=== PATIENT | female | born 1995 | race Caucasian/White ===

== ENCOUNTER 2016-04-14 12:28 | Emergency (ER) | payer OTHER ==
[2016-04-14 14:04] LABS: MEAN CORPUSCULAR HGB CONC 35.3 g/dl (32.0-36.5); MEAN CORPUSCULAR VOLUME 93.7 fl (80.0-96.0); RED CELL DISTRIBUTION WIDTH 11.7 % (11.5-14.5); WHITE BLOOD COUNT 6.2 K/mm3 (4.0-10.0)
--- NOTE | 2016-04-14 15:48 | REP ---
Clinical: Vaginal bleeding for viability. Technique: Transabdominal and transvaginal ultrasound examination with color Doppler evaluation of the fetus and maternal ovaries. Findings: Single live early intrauterine is appreciated. Gestational sac with yolk sac and pole identified. [place]-rump length of 6 mm corresponds to 6 weeks 3 days gestational age gestational age with estimated date of delivery 12/05/2016 . heart rate equals 124 beats per minute. No gross abnormalities are identified. Maternal ovaries demonstrate right corpus luteal cyst and normal vascularity bilaterally without torsion. Right ovary measures 3.6 x 3.4 x 2.1 cm; RI equal 0.72. Left ovary measures 2.4 x 1.9 x 1.5 cm; RI equal 0.63. Impression: Single live early intrauterine at 6 weeks 3 days gestational age. Complete anatomical assessment should be performed and 19-20 weeks. Normal maternal ovaries with right corpus luteal cyst and no evidence for torsion. Signed by Enmanuel Mckeon MD 04/14/2016 03:40 P
--- NOTE | 2016-04-14 16:30 | EDDOCDS ---
Physician Documentation [facility] Name: Annamaria Mcfadden Age: 20 yrs Sex: Female : 1995 Arrival Date: 04/14/2016 Time: 12:28 Bed I Private MD: NO PRIMARY PHYSICIAN, . Disposition: 04/14/16 16:16 Discharged to Home/Self Care. Impression: related conditions, unspecified, first trimester, Trichomonal vulvovaginitis. - Condition is Stable. - Discharge Instructions: First Trimester of , Trichomoniasis, Abdominal Pain During , [id number]. - Prescriptions for Cleocin 2 % Vaginal Cream - insert 5 gram by VAGINAL route At bedtime for 7 days; 45 gram. - Medication Reconciliation, Local Pharmacy Hours form. - Follow up: [facility]; When: 4 - 5 days; Reason: Continuance of care. Follow up: Emergency Department; When: As needed; Reason: Worsening of conditions. - Problem is new. - Symptoms have improved. Historical: - Allergies: no known allergies; - Home Meds: 1. Vitamin Oral tab 1 tab once daily - PMHx: none; - PSHx: none; - Social history: Smoking status: Patient states was never smoker of tobacco. No barriers to communication noted, The patient speaks fluent Vietnamese. - Family history: Not pertinent. - : The pt / caregiver states he / she is not on anticoagulants. Home medication list is obtained from the patient. - Exposure Risk Screening:: None identified. 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 5 in. (165.10 cm) (R); 16:23 BP 108 / 67; Pulse 74; Resp 16; Temp 98.1(T); Pulse Ox 98% on R/A; Pain 0/10; lf1 12:30 Body Mass Index 21.63 (58.97 kg, 165.10 cm) dd6 MDM: 13:24 IV Saline Lock ordered. dk1 13:24 Undress patient appropriately for examination ordered. dk1 13:24 Set up pelvic ordered. dk1 13:25 Type & Screen Ordered. EDMS 13:25 Complete Blood Count Ordered. EDMS 13:25 Hcg, Serum Quantitative Ordered. EDMS 13:25 Urinalysis Ordered. EDMS 13:25 GC & Chlamydia Amplification Ordered. EDMS 13:25 Urine Culture Ordered. EDMS 13:25 Wet Prep Ordered. EDMS 13:25 US 1st trimester Ordered. EDMS 14:05 [facility] Payment Agreement was scanned into [employer] and attached to record. jp5 14:05 Financial registration complete. jp5 14:43 Complete Blood Count Reviewed. dk1 14:43 Urinalysis Reviewed. dk1 14:43 Type & Screen Reviewed. dk1 14:46 Hcg, Serum Quantitative Reviewed. dk1 15:25 TRANSVAGINAL US Ordered. EDMS 15:25 DUPLEX SCAN LIMITED (DOPPLER) Ordered. EDMS 16:00 Wet Prep Reviewed. dk1 16:00 US 1st trimester Reviewed. dk1 Signatures: Dispatcher [employer] SHUVA Kwame Ordaz PA-C PA-C dk1 Jessica SeymourRN RN Criss SchreiberRN RN ms18 Ryann Kim jp5 The chart was reviewed and I authenticate all verbal orders and agree with the evaluation and treatment provided.Attachments: 14:05 [facility] Payment Agreement jp5 MTDD
--- NOTE | 2016-04-14 16:30 | EDDOCDS ---
Nurse's Notes [facility] Name: Annamaria Mcfadden Age: 20 yrs Sex: Female : 1995 Arrival Date: 04/14/2016 Time: 12:28 Bed I7 / 29 Private MD: NO PRIMARY PHYSICIAN, . Diagnosis: related conditions, unspecified, first trimester;Trichomonal vulvovaginitis Presentation: 04/14 12:51 Presenting complaint: Patient states: that she thinks she is 6 weeks and had a ms18 miscarriage. Pt states that she had a blood clot last night and some spotting after that. Risk factors: The patient reports no loss of conciousness prior to arrival. This patient has not had a hysterectomy. This patient has not begun menopause. Adult Sepsis Screening: The patient does not have new or worsening altered mentation. Patient's respiratory rate is less than 22. Systolic blood pressure is greater than 100. Patient has a qSOFA score of 0- Negative Sepsis Screen. Suicide/Homicide risk assessment- the patient denies having any suicidal and/or homicidal ideations and does not present with any other emotional, behavioral or mental health complaints. Status: The patient is a dependent. Transition of care: patient was not received from another setting of care. 12:51 Acuity: JOHANNA Level 3 ms18 12:51 Method Of Arrival: Walkin/Carried/Asstd ms18 Triage Assessment: 12:53 General: Appears in no apparent distress, Behavior is appropriate for age, cooperative. ms18 Pain: Denies pain. Pt Declines HIV testing. Neurological: Level of Consciousness is awake, alert, obeys commands, Oriented to person, place, time. Respiratory: Airway is patent Respiratory effort is even, unlabored. : Reports vaginal bleeding that is spotty. Derm: Skin is pink, warm & dry. 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 Vitamin Oral tab 1 tab once daily - PMHx: none; - PSHx: none; - Social history: Smoking status: Patient states was never smoker of tobacco. No barriers to communication noted, The patient speaks fluent Cymro. - Family history: Not pertinent. - : The pt / caregiver states he / she is not on anticoagulants. Home medication list is obtained from the patient. - Exposure Risk Screening:: None identified. Screenin:26 Screening information is obtained from the patient. Fall risk: No risks identified. [facility] Assistance ADL's: requires no assistance with activities of daily living. Abuse/DV Screen: The patient / caregiver reports he/she is: not in a situation that causes fear, pain or injury. Nutritional screening: No deficits noted. Advance Directives: There is no active DNR order. Assessment: 13:53 Reassessment: Patient appears in no apparent distress at this time. Patient denies pain kr3 at this time. Neurological: No deficits noted. Respiratory: Respiratory effort is even, unlabored. : Reports vaginal bleeding that is spotty had blood clot times 1 yesterday. : Denies cramping. Derm: Skin is normal. 15:04 General: transported to ultrasound via tech. [facility] 15:19 General: returned from ultrasound, tolerated well, no new problems or complaints [facility] voiced, denies needs at present, will continue to monitor. 16:11 General: resting quietly on stretcher, denies needs at this time, awaiting dispo. [facility] 16:26 General: reviewed discharge instructions, encouraged and answered questions, patient [facility] denies further needs. Vital Signs: 12:30 BP 139 / 67; Pulse 77; Resp 18 S; Temp 97.7(O); Pulse Ox 100% on R/A; Weight 58.97 kg dd6 (R); Height 5 ft. 5 in. (165.10 cm) (R); 16:23 BP 108 / 67; Pulse 74; Resp 16; Temp 98.1(T); Pulse Ox 98% on R/A; Pain 0/10; lf1 12:30 Body Mass Index 21.63 (58.97 kg, 165.10 cm) dd6 Vitals: 12:30 Log In Time: April 14, 2016 at 12:28. dd6 ED Course: 12:30 Patient visited by Marco Dominguez PCA. dd6 12:30 NO PRIMARY PHYSICIAN, . is Private Physician. dd6 12:30 Patient moved to Waiting dd6 12:31 Patient moved to Pre RCE dd6 12:53 Triage Initiated ms18 13:13 Patient moved to Triage 1 ms18 13:20 Kwame Ordaz PA-C is PHCP. dk1 13:20 Elena Fabian MD is Attending Physician. dk1 13:20 Patient visited by Kwame Ordaz PA-C. dk1 13:25 Patient moved to I7 / ct3 13:39 Urinalysis Sent. jam1 13:39 Urine Culture Sent. jam1 13:53 Patient visited by Rosaura Mcadams RN. kr3 13:53 Complete Blood Count Sent. kr3 13:53 Hcg, Serum Quantitative Sent. kr3 13:53 Type & Screen Sent. kr3 13:54 The patient / caregiver is instructed regarding the plan of care and ED course. Patient patti has correct armband on for positive identification. Placed in gown. Bed in low position. Call light in reach. Side rails up X 1. 13:54 Inserted saline lock: 20 gauge in right antecubital area and blood collected. The krBen patient tolerated the procedure well. 14:05 [facility] Payment Agreement was scanned into [employer] and attached to record. [facility] 14:22 Patient name changed from Annamaria\S\\S\Bogdan\S\ to Annamaria\S\Molly\S\Dilworth. EDMS 15:04 Patient visited by Jessica Seymour RN. [facility] 15:49 US 1st trimester Returned. EDMS 15:52 GC & Chlamydia Amplification Sent. jam1 15:52 Wet Prep Sent. jam1 16:10 Patient visited by Jessica Seymour RN. [facility] 16:15 Agenda, OB is Referral Physician. dk1 16:23 Patient visited by Danuta Bolanos RN. lf1 16:24 Patient visited by Danuta Bolanos,RAFAL. lf1 16:26 Discontinued lock intact, bleeding controlled, pressure dressing applied, No [facility] redness/swelling at site. No procedures done that require assistance. Order Results: Lab Order: Complete Blood Count; SPEC'M 04/14/16 13:51 Test: WHITE BLOOD COUNT; Value: 6.2; Range: 4.0-10.0; Units: K/mm3; Status: F Test: RED BLOOD COUNT; Value: 3.82; Range: 4.00-5.40; Abnormal: Below low normal; Units: M/mm3; Status: F Test: HEMOGLOBIN; Value: 12.6; Range: 12.0-16.0; Units: g/dl; Status: F Test: HEMATOCRIT; Value: 35.8; Range: 36.0-47.0; Abnormal: Below low normal; Units: %; Status: F Test: MEAN CORPUSCULAR VOLUME; Value: 93.7; Range: 80.0-96.0; Units: fl; Status: F Test: MEAN CORPUSCULAR HEMOGLOBIN; Value: 33.0; Range: 27.0-33.0; Units: pg; Status: F Test: MEAN CORPUSCULAR HGB CONC; Value: 35.3; Range: 32.0-36.5; Units: g/dl; Status: F Test: RED CELL DISTRIBUTION WIDTH; Value: 11.7; Range: 11.5-14.5; Units: %; Status: F Test: PLATELET COUNT, AUTOMATED; Value: 230; Range: 150-450; Units: k/mm3; Status: F Lab Order: Hcg, Serum Quantitative; SPEC'M 04/14/16 13:51 Test: HCG, SERUM QUANTITATIVE; Value: 34835; Units: MIU/ML; Status: F Test Note: ; GESTATIONAL AGE APPROXIMATE HCG RANGE (MIU/ML) 0.2-1 WEEK 5-50 1-2 WEEKS 50-500 2-3 WEEKS 100-5,000 3-4 WEEKS 500-10,000 4-5 WEEKS 1,000-50,000 5-6 WEEKS 10,000-100,000 6-8 WEEKS 15,000-200,000 2-3 MONTHS 10,000-100,000 NON FEMALES LESS THAN 3.0 Patient samples may contain human heterophilic antibodies that could react with immunoassays to give falsely elevated or depressed results. This assay has been designed to minimize interference from heterophilic antibodies. Elevated hCG levels have also been associated with trophoblastic disease and nontrophoblastic neoplasms. The possibility of having these diseases should be considered before a diagnosis of is made. This test is not intended for use as a surrogate marker for aiding in the diagnosis or monitoring the treatment of cancer patients. [employer] Interactive methodology. Lab Order: Type & Screen; SPEC'M 04/14/16 13:51 Test: BLOOD TYPE; Value: AB POS; Status: F Test: AB SCREEN (INDIRECT KIMBERLEY)GEL; Value: NEGATIVE; Status: F Lab Order: Urinalysis; SPEC'M 04/14/16 13:39 Test: APPEARANCE, URINE; Value: CLOUDY; Range: CLEAR; Abnormal: Above high normal; Status: F Test: COLOR, URINE; Value: YELLOW; Range: YELLOW; Status: F Test: PH,URINE; Value: 7.0; Range: 5.0-9.0; Units: UNITS; Status: F Test: SPECIFIC GRAVITY URINE AUTO; Value: 1.023; Range: 1.002-1.035; Status: F Test: PROTEIN, URINE AUTO; Value: NEGATIVE; Range: NEGATIVE; Units: mg/dL; Status: F Test: GLUCOSE, URINE (UA) AUTO; Value: NEGATIVE; Range: NEGATIVE; Units: mg/dL; Status: F Test: KETONE, URINE AUTO; Value: NEGATIVE; Range: NEGATIVE; Units: mg/dL; Status: F Test: UROBILINOGEN, URINE AUTO; Value: 0.2; Range: 0.0-2.0; Units: mg/dL; Status: F Test: BILIRUBIN, URINE AUTO; Value: NEGATIVE; Range: NEGATIVE; Status: F Test: NITRITE, URINE AUTO; Value: NEGATIVE; Range: NEGATIVE; Status: F Test: LEUKOCYTE ESTERASE, URINE AUTO; Value: NEGATIVE; Range: NEGATIVE; Status: F Test: BLOOD, URINE BLOOD; Value: NEGATIVE; Range: NEGATIVE; Status: F Test: WBC, URINE AUTO; Value: 2; Range: 0-3; Units: /HPF; Status: F Test: RBC, URINE AUTO; Value: 1; Range: 0-3; Units: /HPF; Status: F Test: BACTERIA, URINE AUTO; Value: 1+; Range: NEGATIVE; Abnormal: Above high normal; Status: F Test: SQUAMOUS EPITHELIAL CELL UR AU; Value: 2; Range: 0-6; Units: /HPF; Status: F Test: MUCUS, URINE; Value: SMALL; Range: NEGATIVE; Status: F Test: HYALINE CAST, URINE AUTO; Value: 0; Range: 0-1; Units: /LPF; Status: F Test: AMORPHOUS SEDIMENT; Value: MODERATE; Range: NEGATIVE; Abnormal: Above high normal; Status: F Lab Order: Wet Prep; SPEC'M 04/14/16 13:39 Test: WET PREP; Value: WET PREP RESULT; Status: F Test: WET PREP; Value: MANY WBC; Status: F Test: WET PREP; Value: MANY EPITHELIAL CELLS PRESENT; Status: F Test: WET PREP; Value: MODERATE CLUE CELLS PRESENT; Status: F Test: WET PREP; Value: MANY SHORT RODS PRESENT; Status: F Test: WET PREP; Value: Comments:; Status: F Test Note: ; Specimen did not meet the 1 hour time limit from collection to examination. Trichomonas vaginalis loses motility quickly therefore, samples need to be examined within 1 hour of collection to optimally identify this organism. Radiology Order: US 1st trimester Test: US 1st trimester REASON FOR EXAMINATION: and bleeding;Adnexal Pain r/o Torsion; Clinical: Vaginal bleeding for viability.; ; Technique: Transabdominal and transvaginal ultrasound examination with color; Doppler evaluation of the fetus and maternal ovaries.; ; Findings:; Single live early intrauterine is appreciated. Gestational sac with; yolk sac and pole identified. [place]-rump length of 6 mm corresponds to 6; weeks 3 days gestational age gestational age with estimated date of delivery; 12/05/2016 . heart rate equals 124 beats per minute. No gross; abnormalities are identified.; ; Maternal ovaries demonstrate right corpus luteal cyst and normal vascularity; bilaterally without torsion. Right ovary measures 3.6 x 3.4 x 2.1 cm; RI equal; 0.72. Left ovary measures 2.4 x 1.9 x 1.5 cm; RI equal 0.63.; ; Impression:; Single live early intrauterine at 6 weeks 3 days gestational age.; Complete anatomical assessment should be performed and 19-20 weeks. Normal; maternal ovaries with right corpus luteal cyst and no evidence for torsion.; ; ; Signed by; Enmanuel Mckeon MD 04/14/2016 03:40 P; Outcome: 16:16 Discharge ordered by Provider. dk1 16:26 Discharge Assessment: Patient awake, alert and oriented x 3. No cognitive and/or cjh functional deficits noted. Patient verbalized understanding of disposition instructions. patient administered narcotics - no. The following High Risk Discharge criteria are identified: None. Discharged to home ambulatory. Condition: good Condition: stable Condition: improved. Discharge instructions given to patient, Instructed on discharge instructions, follow up and referral plans. medication usage, Demonstrated understanding of instructions, medications, Pt was receptive of discharge instructions/ teaching. Prescriptions given X 1. Ultrasound Study completed. Property :Personal belongings accompany Pt. 16:30 Patient left the ED. [facility] Signatures: Dispatcher [employer] EDMS Jessica Steele, REHAB NURSING TECH REHAB NURSING TECH jam1 Rosaura Mcadams,RN RN kr3 Kwame Ordaz, PAMyra PAMaeganC juan1 Danuta Bolanos,RAFAL RN lf1 Marco Dominguez, REHAB NURSING TECH REHAB NURSING TECH dd6 Rachel Zavala, REHAB NURSING TECH REHAB NURSING TECH ct3 Jessica Seymour RN RN [facility] Criss HuitronRN RN ms18 Ryann Kim jp5 Corrections: (The following items were deleted from the chart) 13:41 13:30 BP 125 / 59; Pulse 78bpm; Resp 20bpm; Pulse Ox 97%; Temp 101.3F; Pain 2/10; jam1 jam1 MTDD
--- NOTE | 2016-04-16 17:30 | EDDOCDS ---
Physician Documentation [facility] Name: Annamaria Mcfadden Age: 20 yrs Sex: Female : 1995 Arrival Date: 04/14/2016 Time: 12:28 Bed I Private MD: NO PRIMARY PHYSICIAN, . Disposition: 04/14/16 16:16 Discharged to Home/Self Care. Impression: related conditions, unspecified, first trimester, Trichomonal vulvovaginitis. - Condition is Stable. - Discharge Instructions: First Trimester of , Trichomoniasis, Abdominal Pain During , [id number]. - Prescriptions for Cleocin 2 % Vaginal Cream - insert 5 gram by VAGINAL route At bedtime for 7 days; 45 gram. - Medication Reconciliation, Local Pharmacy Hours form. - Follow up: [facility]; When: 4 - 5 days; Reason: Continuance of care. Follow up: Emergency Department; When: As needed; Reason: Worsening of conditions. - Problem is new. - Symptoms have improved. Historical: - Allergies: no known allergies; - Home Meds: 1. Vitamin Oral tab 1 tab once daily - PMHx: none; - PSHx: none; - Social history: Smoking status: Patient states was never smoker of tobacco. No barriers to communication noted, The patient speaks fluent Indonesian. - Family history: Not pertinent. - : The pt / caregiver states he / she is not on anticoagulants. Home medication list is obtained from the patient. - Exposure Risk Screening:: None identified. 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 5 in. (165.10 cm) (R); 16:23 BP 108 / 67; Pulse 74; Resp 16; Temp 98.1(T); Pulse Ox 98% on R/A; Pain 0/10; lf1 12:30 Body Mass Index 21.63 (58.97 kg, 165.10 cm) dd6 MDM: 13:24 IV Saline Lock ordered. dk1 13:24 Undress patient appropriately for examination ordered. dk1 13:24 Set up pelvic ordered. dk1 13:25 Type & Screen Ordered. EDMS 13:25 Complete Blood Count Ordered. EDMS 13:25 Hcg, Serum Quantitative Ordered. EDMS 13:25 Urinalysis Ordered. EDMS 13:25 GC & Chlamydia Amplification Ordered. EDMS 13:25 Urine Culture Ordered. EDMS 13:25 Wet Prep Ordered. EDMS 13:25 US 1st trimester Ordered. EDMS 14:05 [facility] Payment Agreement was scanned into [employer] and attached to record. jp5 14:05 Financial registration complete. jp5 14:43 Complete Blood Count Reviewed. dk1 14:43 Urinalysis Reviewed. dk1 14:43 Type & Screen Reviewed. dk1 14:46 Hcg, Serum Quantitative Reviewed. dk1 15:25 TRANSVAGINAL US Ordered. EDMS 15:25 DUPLEX SCAN LIMITED (DOPPLER) Ordered. EDMS 16:00 Wet Prep Reviewed. dk1 16:00 US 1st trimester Reviewed. dk1 04/15 06:06 T-Sheet-- Draft Copy was scanned into [employer] and attached to record. sophia Signatures: Dispatcher [employer] Kwame Alvarez PA-C PA-C dk1 Jessica SeymourRN RN Criss Stinson RN RN ms18 Arel, Ryann Arredondo jp5 The chart was reviewed and I authenticate all verbal orders and agree with the evaluation and treatment provided.Attachments: 04/14 14:05 [facility] Payment Agreement jp5 04/15 06:06 T-Sheet-- Draft Copy sophia Chart Complete MTDD
--- NOTE | 2016-04-16 17:30 | EDDOCDS ---
Physician Documentation [facility] Name: Annamaria Mcfadden Age: 20 yrs Sex: Female : 1995 Arrival Date: 04/14/2016 Time: 12:28 Bed I Private MD: NO PRIMARY PHYSICIAN, . Disposition: 04/14/16 16:16 Discharged to Home/Self Care. Impression: related conditions, unspecified, first trimester, Trichomonal vulvovaginitis. - Condition is Stable. - Discharge Instructions: First Trimester of , Trichomoniasis, Abdominal Pain During , [id number]. - Prescriptions for Cleocin 2 % Vaginal Cream - insert 5 gram by VAGINAL route At bedtime for 7 days; 45 gram. - Medication Reconciliation, Local Pharmacy Hours form. - Follow up: [facility]; When: 4 - 5 days; Reason: Continuance of care. Follow up: Emergency Department; When: As needed; Reason: Worsening of conditions. - Problem is new. - Symptoms have improved. Historical: - Allergies: no known allergies; - Home Meds: 1. Vitamin Oral tab 1 tab once daily - PMHx: none; - PSHx: none; - Social history: Smoking status: Patient states was never smoker of tobacco. No barriers to communication noted, The patient speaks fluent Yakut. - Family history: Not pertinent. - : The pt / caregiver states he / she is not on anticoagulants. Home medication list is obtained from the patient. - Exposure Risk Screening:: None identified. 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 5 in. (165.10 cm) (R); 16:23 BP 108 / 67; Pulse 74; Resp 16; Temp 98.1(T); Pulse Ox 98% on R/A; Pain 0/10; lf1 12:30 Body Mass Index 21.63 (58.97 kg, 165.10 cm) dd6 MDM: 13:24 IV Saline Lock ordered. dk1 13:24 Undress patient appropriately for examination ordered. dk1 13:24 Set up pelvic ordered. dk1 13:25 Type & Screen Ordered. EDMS 13:25 Complete Blood Count Ordered. EDMS 13:25 Hcg, Serum Quantitative Ordered. EDMS 13:25 Urinalysis Ordered. EDMS 13:25 GC & Chlamydia Amplification Ordered. EDMS 13:25 Urine Culture Ordered. EDMS 13:25 Wet Prep Ordered. EDMS 13:25 US 1st trimester Ordered. EDMS 14:05 [facility] Payment Agreement was scanned into [employer] and attached to record. jp5 14:05 Financial registration complete. jp5 14:43 Complete Blood Count Reviewed. dk1 14:43 Urinalysis Reviewed. dk1 14:43 Type & Screen Reviewed. dk1 14:46 Hcg, Serum Quantitative Reviewed. dk1 15:25 TRANSVAGINAL US Ordered. EDMS 15:25 DUPLEX SCAN LIMITED (DOPPLER) Ordered. EDMS 16:00 Wet Prep Reviewed. dk1 16:00 US 1st trimester Reviewed. dk1 04/15 06:06 T-Sheet-- Draft Copy was scanned into [employer] and attached to record. sophia Signatures: Dispatcher [employer] Kwame Alvarez PA-C PA-C dk1 Jessica SeymourRN RN Criss Stinson RN RN ms18 Arel, Ryann Arredondo jp5 The chart was reviewed and I authenticate all verbal orders and agree with the evaluation and treatment provided.Attachments: 04/14 14:05 [facility] Payment Agreement jp5 04/15 06:06 T-Sheet-- Draft Copy sophia Chart Complete MTDD
--- NOTE | 2016-04-16 17:31 | EDDOCDS ---
Nurse's Notes [facility] Name: Annamaria Mcfadden Age: 20 yrs Sex: Female : 1995 Arrival Date: 04/14/2016 Time: 12:28 Bed I7 / 29 Private MD: NO PRIMARY PHYSICIAN, . Diagnosis: related conditions, unspecified, first trimester;Trichomonal vulvovaginitis Presentation: 04/14 12:51 Presenting complaint: Patient states: that she thinks she is 6 weeks and had a ms18 miscarriage. Pt states that she had a blood clot last night and some spotting after that. Risk factors: The patient reports no loss of conciousness prior to arrival. This patient has not had a hysterectomy. This patient has not begun menopause. Adult Sepsis Screening: The patient does not have new or worsening altered mentation. Patient's respiratory rate is less than 22. Systolic blood pressure is greater than 100. Patient has a qSOFA score of 0- Negative Sepsis Screen. Suicide/Homicide risk assessment- the patient denies having any suicidal and/or homicidal ideations and does not present with any other emotional, behavioral or mental health complaints. Status: The patient is a dependent. Transition of care: patient was not received from another setting of care. 12:51 Acuity: JOHANNA Level 3 ms18 12:51 Method Of Arrival: Walkin/Carried/Asstd ms18 Triage Assessment: 12:53 General: Appears in no apparent distress, Behavior is appropriate for age, cooperative. ms18 Pain: Denies pain. Pt Declines HIV testing. Neurological: Level of Consciousness is awake, alert, obeys commands, Oriented to person, place, time. Respiratory: Airway is patent Respiratory effort is even, unlabored. : Reports vaginal bleeding that is spotty. Derm: Skin is pink, warm & dry. TRIAL MANAGER: 12:53 2, Full Term 1, Premature 0, 0, Living 1, LMP 02/26/2016 ms18 Historical: - Allergies: no known allergies; - Home Meds: 1. Vitamin Oral tab 1 tab once daily - PMHx: none; - PSHx: none; - Social history: Smoking status: Patient states was never smoker of tobacco. No barriers to communication noted, The patient speaks fluent Russian. - Family history: Not pertinent. - : The pt / caregiver states he / she is not on anticoagulants. Home medication list is obtained from the patient. - Exposure Risk Screening:: None identified. Screenin:26 Screening information is obtained from the patient. Fall risk: No risks identified. [facility] Assistance ADL's: requires no assistance with activities of daily living. Abuse/DV Screen: The patient / caregiver reports he/she is: not in a situation that causes fear, pain or injury. Nutritional screening: No deficits noted. Advance Directives: There is no active DNR order. Assessment: 13:53 Reassessment: Patient appears in no apparent distress at this time. Patient denies pain kr3 at this time. Neurological: No deficits noted. Respiratory: Respiratory effort is even, unlabored. : Reports vaginal bleeding that is spotty had blood clot times 1 yesterday. : Denies cramping. Derm: Skin is normal. 15:04 General: transported to ultrasound via tech. [facility] 15:19 General: returned from ultrasound, tolerated well, no new problems or complaints [facility] voiced, denies needs at present, will continue to monitor. 16:11 General: resting quietly on stretcher, denies needs at this time, awaiting dispo. [facility] 16:26 General: reviewed discharge instructions, encouraged and answered questions, patient [facility] denies further needs. Vital Signs: 12:30 BP 139 / 67; Pulse 77; Resp 18 S; Temp 97.7(O); Pulse Ox 100% on R/A; Weight 58.97 kg dd6 (R); Height 5 ft. 5 in. (165.10 cm) (R); 16:23 BP 108 / 67; Pulse 74; Resp 16; Temp 98.1(T); Pulse Ox 98% on R/A; Pain 0/10; lf1 12:30 Body Mass Index 21.63 (58.97 kg, 165.10 cm) dd6 Vitals: 12:30 Log In Time: April 14, 2016 at 12:28. dd6 ED Course: 12:30 Patient visited by Marco Dominguez PCA. dd6 12:30 NO PRIMARY PHYSICIAN, . is Private Physician. dd6 12:30 Patient moved to Waiting dd6 12:31 Patient moved to Pre RCE dd6 12:53 Triage Initiated ms18 13:13 Patient moved to Triage 1 ms18 13:20 Kwame Ordaz PA-C is PHCP. dk1 13:20 Elena Fabian MD is Attending Physician. dk1 13:20 Patient visited by Kwame Ordaz PA-C. dk1 13:25 Patient moved to I7 / ct3 13:39 Urinalysis Sent. jam1 13:39 Urine Culture Sent. jam1 13:53 Patient visited by Rosaura Mcadams RN. kr3 13:53 Complete Blood Count Sent. kr3 13:53 Hcg, Serum Quantitative Sent. kr3 13:53 Type & Screen Sent. kr3 13:54 The patient / caregiver is instructed regarding the plan of care and ED course. Patient kr3 has correct armband on for positive identification. Placed in gown. Bed in low position. Call light in reach. Side rails up X 1. 13:54 Inserted saline lock: 20 gauge in right antecubital area and blood collected. The kr3 patient tolerated the procedure well. 14:05 COUNT INCLUDES THE [facility] Payment Agreement was scanned into [employer] and attached to record. jp5 14:22 Patient name changed from Annamaria\S\\S\Bogdan\S\ to Annamaria\S\Molly\S\Collins. EDMS 15:04 Patient visited by Jessica Seymour RN. [facility] 15:49 US 1st trimester Returned. EDMS 15:52 GC & Chlamydia Amplification Sent. jam1 15:52 Wet Prep Sent. jam1 16:10 Patient visited by Jessica Seymour RN. [facility] 16:15 Garfield, OB is Referral Physician. dk1 16:23 Patient visited by Danuta Bolanos RN. lf1 16:24 Patient visited by Danuta Bolanos,RAFAL. lf1 16:26 Discontinued lock intact, bleeding controlled, pressure dressing applied, No [facility] redness/swelling at site. No procedures done that require assistance. 04/15 06:06 T-Sheet-- Draft Copy was scanned into [employer] and attached to record. lja Order Results: Lab Order: Complete Blood Count; SPEC'M 04/14/16 13:51 Test: WHITE BLOOD COUNT; Value: 6.2; Range: 4.0-10.0; Units: K/mm3; Status: F Test: RED BLOOD COUNT; Value: 3.82; Range: 4.00-5.40; Abnormal: Below low normal; Units: M/mm3; Status: F Test: HEMOGLOBIN; Value: 12.6; Range: 12.0-16.0; Units: g/dl; Status: F Test: HEMATOCRIT; Value: 35.8; Range: 36.0-47.0; Abnormal: Below low normal; Units: %; Status: F Test: MEAN CORPUSCULAR VOLUME; Value: 93.7; Range: 80.0-96.0; Units: fl; Status: F Test: MEAN CORPUSCULAR HEMOGLOBIN; Value: 33.0; Range: 27.0-33.0; Units: pg; Status: F Test: MEAN CORPUSCULAR HGB CONC; Value: 35.3; Range: 32.0-36.5; Units: g/dl; Status: F Test: RED CELL DISTRIBUTION WIDTH; Value: 11.7; Range: 11.5-14.5; Units: %; Status: F Test: PLATELET COUNT, AUTOMATED; Value: 230; Range: 150-450; Units: k/mm3; Status: F Lab Order: Hcg, Serum Quantitative; SPEC'M 04/14/16 13:51 Test: HCG, SERUM QUANTITATIVE; Value: 40841; Units: MIU/ML; Status: F Test Note: ; GESTATIONAL AGE APPROXIMATE HCG RANGE (MIU/ML) 0.2-1 WEEK 5-50 1-2 WEEKS 50-500 2-3 WEEKS 100-5,000 3-4 WEEKS 500-10,000 4-5 WEEKS 1,000-50,000 5-6 WEEKS 10,000-100,000 6-8 WEEKS 15,000-200,000 2-3 MONTHS 10,000-100,000 NON FEMALES LESS THAN 3.0 Patient samples may contain human heterophilic antibodies that could react with immunoassays to give falsely elevated or depressed results. This assay has been designed to minimize interference from heterophilic antibodies. Elevated hCG levels have also been associated with trophoblastic disease and nontrophoblastic neoplasms. The possibility of having these diseases should be considered before a diagnosis of is made. This test is not intended for use as a surrogate marker for aiding in the diagnosis or monitoring the treatment of cancer patients. [employer] methodology. Lab Order: Type & Screen; SPEC'M 04/14/16 13:51 Test: BLOOD TYPE; Value: AB POS; Status: F Test: AB SCREEN (INDIRECT KIMBERLEY)GEL; Value: NEGATIVE; Status: F Lab Order: Urinalysis; SPEC'M 04/14/16 13:39 Test: APPEARANCE, URINE; Value: CLOUDY; Range: CLEAR; Abnormal: Above high normal; Status: F Test: COLOR, URINE; Value: YELLOW; Range: YELLOW; Status: F Test: PH,URINE; Value: 7.0; Range: 5.0-9.0; Units: UNITS; Status: F Test: SPECIFIC GRAVITY URINE AUTO; Value: 1.023; Range: 1.002-1.035; Status: F Test: PROTEIN, URINE AUTO; Value: NEGATIVE; Range: NEGATIVE; Units: mg/dL; Status: F Test: GLUCOSE, URINE (UA) AUTO; Value: NEGATIVE; Range: NEGATIVE; Units: mg/dL; Status: F Test: KETONE, URINE AUTO; Value: NEGATIVE; Range: NEGATIVE; Units: mg/dL; Status: F Test: UROBILINOGEN, URINE AUTO; Value: 0.2; Range: 0.0-2.0; Units: mg/dL; Status: F Test: BILIRUBIN, URINE AUTO; Value: NEGATIVE; Range: NEGATIVE; Status: F Test: NITRITE, URINE AUTO; Value: NEGATIVE; Range: NEGATIVE; Status: F Test: LEUKOCYTE ESTERASE, URINE AUTO; Value: NEGATIVE; Range: NEGATIVE; Status: F Test: BLOOD, URINE BLOOD; Value: NEGATIVE; Range: NEGATIVE; Status: F Test: WBC, URINE AUTO; Value: 2; Range: 0-3; Units: /HPF; Status: F Test: RBC, URINE AUTO; Value: 1; Range: 0-3; Units: /HPF; Status: F Test: BACTERIA, URINE AUTO; Value: 1+; Range: NEGATIVE; Abnormal: Above high normal; Status: F Test: SQUAMOUS EPITHELIAL CELL UR AU; Value: 2; Range: 0-6; Units: /HPF; Status: F Test: MUCUS, URINE; Value: SMALL; Range: NEGATIVE; Status: F Test: HYALINE CAST, URINE AUTO; Value: 0; Range: 0-1; Units: /LPF; Status: F Test: AMORPHOUS SEDIMENT; Value: MODERATE; Range: NEGATIVE; Abnormal: Above high normal; Status: F Lab Order: Urine Culture; SPEC'M 04/14/16 13:39 Test: URINE CULTURE; Value: URINE CULTURE RESULT NO GROWTH CLINICAL SIGNIFICANCE 1 ORGANISM; Status: F Lab Order: Wet Prep; SPEC'M 04/14/16 13:39 Test: WET PREP; Value: WET PREP RESULT; Status: F Test: WET PREP; Value: MANY WBC; Status: F Test: WET PREP; Value: MANY EPITHELIAL CELLS PRESENT; Status: F Test: WET PREP; Value: MODERATE CLUE CELLS PRESENT; Status: F Test: WET PREP; Value: MANY SHORT RODS PRESENT; Status: F Test: WET PREP; Value: Comments:; Status: F Test Note: ; Specimen did not meet the 1 hour time limit from collection to examination. Trichomonas vaginalis loses motility quickly therefore, samples need to be examined within 1 hour of collection to optimally identify this organism. Lab Order: GC & Chlamydia Amplification; SPEC'M 04/14/16 13:39 Test: CHLAMYDIA DNA AMPLIFICATION; Value: NEGATIVE; Range: NEGATIVE; Status: F Test: GC DNA AMPLIFICATION; Value: NEGATIVE; Range: NEGATIVE; Status: F Radiology Order: US 1st trimester Test: US 1st trimester REASON FOR EXAMINATION: and bleeding;Adnexal Pain r/o Torsion; Clinical: Vaginal bleeding for viability.; ; Technique: Transabdominal and transvaginal ultrasound examination with color; Doppler evaluation of the fetus and maternal ovaries.; ; Findings:; Single live early intrauterine is appreciated. Gestational sac with; yolk sac and pole identified. Clinton-rump length of 6 mm corresponds to 6; weeks 3 days gestational age gestational age with estimated date of delivery; 12/05/2016 . heart rate equals 124 beats per minute. No gross; abnormalities are identified.; ; Maternal ovaries demonstrate right corpus luteal cyst and normal vascularity; bilaterally without torsion. Right ovary measures 3.6 x 3.4 x 2.1 cm; RI equal; 0.72. Left ovary measures 2.4 x 1.9 x 1.5 cm; RI equal 0.63.; ; Impression:; Single live early intrauterine at 6 weeks 3 days gestational age.; Complete anatomical assessment should be performed and 19-20 weeks. Normal; maternal ovaries with right corpus luteal cyst and no evidence for torsion.; ; ; Signed by; Enmanuel Mckeon MD 04/14/2016 03:40 P; Outcome: 04/14 16:16 Discharge ordered by Provider. dk1 16:26 Discharge Assessment: Patient awake, alert and oriented x 3. No cognitive and/or [facility] functional deficits noted. Patient verbalized understanding of disposition instructions. patient administered narcotics - no. The following High Risk Discharge criteria are identified: None. Discharged to home ambulatory. Condition: good Condition: stable Condition: improved. Discharge instructions given to patient, Instructed on discharge instructions, follow up and referral plans. medication usage, Demonstrated understanding of instructions, medications, Pt was receptive of discharge instructions/ teaching. Prescriptions given X 1. Ultrasound Study completed. Property :Personal belongings accompany Pt. 16:30 Patient left the ED. [facility] Signatures: Dispatcher [employer] EDMS Jessica Steele, GILL BOX OPERATOR GILL BOX OPERATOR jam1 Rosaura Mcadams RN RN kr3 Kwame Ordaz, PA-C PA-C [email or web address] Danuta Bolanos,RN RN lf1 Marco Dominguez, GILL BOX OPERATOR GILL BOX OPERATOR dd6 Rachel Zavala, GILL BOX OPERATOR GILL BOX OPERATOR ct3 Jessica Seymour RN RN [facility] Criss HuitronRN RN ms18 [place], Ryann Arredondo jp5 Corrections: (The following items were deleted from the chart) 13:41 13:30 BP 125 / 59; Pulse 78bpm; Resp 20bpm; Pulse Ox 97%; Temp 101.3F; Pain 2/10; jam1 jam1 Chart Complete MTDD
== END 2016-04-14 16:30 | disposition home or self-care (01) ==
LOC: M ED 12:28
DX: O34.81 Maternal care for other abnormalities of pelvic organs, first trimester (principal); O23.591 Infection of other part of genital tract in pregnancy, first trimester; N83.291 Other ovarian cyst, right side; Z79.899 Other long term (current) drug therapy; Z3A.01 Less than 8 weeks gestation of pregnancy

== ENCOUNTER → 2018-05-25 | Outpatient (CLI) | payer OTHER ==
[~2018-05-25] MED LIST: DICY20TA11 PO; OMEP40CA2 PO; ONDA4TAB6 PO; PEPC1TAB5 PO; TRI-TAB PO
--- NOTE | 2018-05-25 12:04 | REP ---
KUB ABDOMEN AND PELVIS: Two KUB films of abdomen and pelvis performed. There is no evidence of bowel obstruction. No dilated small bowel loops are seen. Mild air and fecal material scattered throughout the colon. No abnormal calcifications are seen. There is mild curvature of the lumbar spine convex to the right. IMPRESSION: Essentially unremarkable KUB study. Electronically Signed by Simón Cobos MD 05/25/2018 05:26 P
== END ==
LOC: M LRY 11:26
PROVIDERS: ATTEND Physician Assistant
DX: M53.86 Other specified dorsopathies, lumbar region (principal)

== ENCOUNTER 2018-05-29 09:53 | Emergency (ER) | payer OTHER ==
[~2018-05-29] VITALS: Ht 162.6 cm; Wt 56.8 kg
[2018-05-29] MEDS ORDERED: OMEP40CA2 PO (09:58)
[2018-05-29] MEDS ORDERED: TRI-TAB PO (09:58)
[2018-05-29] MEDS ORDERED: ONDA4TAB6 PO ×2 (09:58→12:10)
[2018-05-29] MEDS ORDERED: METOCLOPRAMIDE INJ 10MG/2ML VIAL (J2765) IV ONE (10:30)
[2018-05-29] MEDS ORDERED: NS 1,000 ML IV ONE (10:30)
[2018-05-29 10:46] LABS: BASO % 0.1 % (0.0-1.0); EOS % 0.1 % (0.0-3.0); HEMATOCRIT 38.8 % (36.0-47.0); HEMOGLOBIN 13.3 g/dl (12.0-15.5); LYMPH # 1.4 10^3/uL (1.5-6.5); LYMPH % 17.7 % (24.0-44.0); MEAN CORPUSCULAR HEMOGLOBIN 31.8 pg (27.0-33.0); MEAN CORPUSCULAR HGB CONC 34.3 g/dl (32.0-36.5); MEAN CORPUSCULAR VOLUME 92.8 fl (80.0-96.0); MONO # 0.3 10^3/uL (0.0-0.8); MONO % 3.8 % (0.0-5.0); NEUTROPHILS % 78.2 % (36.0-66.0); PLATELET COUNT, AUTOMATED 209 10^3/uL (150-450); RED BLOOD COUNT 4.18 10^6/uL (4.00-5.40); WHITE BLOOD COUNT 7.7 10^3/uL (4.0-10.0)
[2018-05-29 11:07] LABS: ALT/SGPT 17 U/L (12-78); AMYLASE 63 U/L (25-115); BILIRUBIN,DIRECT 0.2 MG/DL (0.0-0.2); BILIRUBIN,TOTAL 0.5 MG/DL (0.2-1.0); BLOOD UREA NITROGEN 7 MG/DL (7-18); CALCIUM LEVEL 8.6 MG/DL (8.5-10.1); CARBON DIOXIDE LEVEL 26 MEQ/L (21-32); CHLORIDE LEVEL 108 MEQ/L (98-107); GLOMERULAR FILTRATION RATE > 60.0 (>60); GLUCOSE, FASTING 99 MG/DL (70-100); LIPASE 172 U/L (73-393); POTASSIUM SERUM 3.9 MEQ/L (3.5-5.1); SODIUM LEVEL 143 MEQ/L (136-145); TOTAL PROTEIN 7.1 GM/DL (6.4-8.2)
[2018-05-29 11:37] LABS: HCG, SERUM QUALITATIVE NEGATIVE (NEGATIVE)
[2018-05-29 11:55] VITALS: BP 115/69
[2018-05-29] MEDS ORDERED: DICY20TA11 PO (12:10)
[2018-05-29] MEDS ORDERED: PEPC1TAB5 PO (12:10)
== END 2018-05-29 12:15 | disposition home or self-care (01) ==
LOC: M ED 09:53
DX: R10.9 Unspecified abdominal pain (principal); R11.2 Nausea with vomiting, unspecified; Z79.899 Other long term (current) drug therapy
CPT/HCPCS: 80048; 80076; 82150; 83690; 84703; 85025; 96374; 99284; J2765

== ENCOUNTER → 2018-07-11 | Outpatient (CLI) | payer OTHER ==
--- NOTE | 2018-07-11 15:45 | REP ---
Clinical: Acute chest pain . Comparison: None . Technique: PA and lateral. Findings: The mediastinum and cardiac silhouette are normal. The lung wilson are clear and without acute consolidation, effusion, or pneumothorax. The skeletal structures are intact and normal. Impression: 1. No acute cardiopulmonary process. Electronically Signed by Enmanuel Mckeon MD 07/11/2018 03:37 P
== END ==
LOC: M LRY 15:16
PROVIDERS: ATTEND Nurse Practitioner Family
DX: R07.9 Chest pain, unspecified (principal)